=== PATIENT | female | born 1985 | race Two or more races ===

== ENCOUNTER 2023-06-13 21:39 | Emergency (ER) | payer MEDICAID ==
[~2023-06-13] VITALS: Ht 167.6 cm; Wt 112.7 kg
[2023-06-13 21:44] VITALS: BP 159/106; PULSE 90; TEMP 98.4; O2SAT 99
[2023-06-13 22:16] VITALS: RESP 18
[2023-06-13] MEDS ORDERED: POLY17PO10 PO (22:23)
[2023-06-13] MEDS: lactulose 20gm/30ml cup PO ONE (22:28)
[2023-06-13] MEDS: magnesium citrate 296ml oral solution PO ONE (22:33)
== END 2023-06-13 22:40 | disposition home or self-care (01) ==
LOC: ER 21:40
DX: K59.00 Constipation, unspecified (principal); Z79.899 Other long term (current) drug therapy; Z88.8 Allergy status to other drugs, medicaments and biological substances
CPT/HCPCS: 99283